=== PATIENT | female | born 1975 | race Caucasian/White ===

== ENCOUNTER 2017-12-15 14:57 | Observation (INO) ==
[2017-12-15] MEDS ORDERED: Naloxone 0.4 MG/ML INJ IVP PRN (17:18)
[2017-12-15] MEDS ORDERED: *HR* Heparin 5,000 UNIT/ML VIAL IVP PRN ×2 (17:22)
[2017-12-15] MEDS ORDERED: *HR* Heparin 5,000 UNIT/ML VIAL IVP ONE (17:22)
[2017-12-15] MEDS ORDERED: 0.9 % Sodium Chloride 1,000 ML IVC SCH ×2 (17:30→19:06)
[2017-12-15] MEDS: Heparin 25,000 UNIT/500 ML D5W 25,000 UNIT/500 ML BAG IVC SCH (17:54)
--- NOTE | 2017-12-15 18:01 | Internal Med History&Physical ---
Date of Encounter: 12/15/17 Time of Encounter: 17:50 Internal Medicine - H&P: HPI Chief complaint: chest pain Admitted From: Hospital to Hospital Transfer Plans for Post Hospital Care: Home History of present illness: Ms. Michelle is a 42 year old female with history of HTnadn ELADIA not compliant to her CPAP who was sent from [facility] to [facility] with cheif complaint of chest pain. as per patient her symptoms started about 3 days ago and are progressively worsening. she cannot recall what she was doing when her pain originally started. her pain is located in the left side of chest, radiating to her jaw and neck, feels like an elephant on her chest, 5/10 in severity although it has improved since arrival to [facility]. laying down does not aggravate her pain and sitting up does not alleviate her pain. her pain occurs both at rest and on ambulation. in addition to chest pain she also complains of Orthopnea, PND and bilateral leg swelling. her pain is not aggravated by palpation or deep breathing. she visited her PCP about 6 days ago and was started on diuretic ( cannot recall name or dosage). she has not been active for the past month. she has quit her job and is mostly at home. her activity has decreased but at baseline she reports that she can walk around the grocery store without having to stop for CP or SOB. she reports Dry cough and headache for the past 5 days. has not taken anything for the symptoms. she reports family history of heart disease in her father and grandmother was diagnosed with ELADIA but is non-compliant with her CPAP although she reports she hasbeen using it more often in the past 2 weeks. she denies fever, chills, chest trauma, palpitations, N/v/D, constipation, sputum production, Sick contacts, prolonged immobilization, clotting disorders Past Med Surg Social Fam HX - Past Medical History Medical history: arthritis, fibromyalgia, hypertension, SVT Psychiatric history: no psych history - Past Surgical History Additional surgical history: cardiac ablation - Social History Smoking Status: Current every day smoker Packs per day: 1/ Alcohol use: rarely Drug use: none - Family History Mother Living Status: Still Living Hx Family Genitourinary Disorders: Yes Father Living Status: Still Living Hx Family Cardiac Disorders: Yes Internal Medicine - H&P: Meds 3 Allergy/AdvReac Type Severity Reaction Status Date / Time No Known Allergies Allergy Unverified 10/26/16 23:54 All Systems PM: review of systems was performed and is negative for pertinent findings except as documented above in the HPI. - Constitutional Vitals: Temp Pulse Resp BP Pulse Ox 98.4 F 72 16 111/70 97 12/15/17 16:52 12/15/17 16:52 12/15/17 16:52 12/15/17 16:52 12/15/17 16:52 Exam: General: Patient is alert, oriented, no acute distress, morbidly obese Head: atraumatic, normocephalic, Eye: normal appearance, PERRL, no scleral icterus, no conjunctival injection ENT: mucous membranes moist, normal external ear exam Neck: normal inspection, trachea midline, full ROM, no carotid bruits Chest: normal inspection, symmetric chest rise Respiratory: distant breath sounds secondary to body habitus Good respiratory effort. Bilateral breath sounds are clear without wheezing, crackles, or rhonchi. Cardiovascular: distent heart sounds secondary to body habitus Regular rate and rhythm. s1 and s2 No clicks, rubs, gallops, or murmors. Abdomen: Bowel sounds present normoactive x-4 quadrants. Abdomen is soft, nondistended. no Epigastric tenderness. No guarding or rebound. No organomegaly noted, obese musculoskeletal: Spontaneously moving all extremities. +1 edema, no calf tenderness Skin: warm, dry, intact. Neuro: Alert and oriented x4. Sensation light touch intact. Cranial nerves 2- 12 is intact. Not aphasic, gait is steady, rapid hand movements intact, finger- to-nose intact, Psych: Patient's affect is normal Internal Med - H&P Results - EKG Data -: EKG Interpreted by Myself (ST elevations in the inferolateral leads, OR elevation in AVR ) - EKG Data Prior EKG available for review: no - Assessment and plan (1) Chest pain Current Visit: Yes Status: Acute Assessment and plan: Non-STEMI versus myopericarditis tele monitoring Was started on heparin drip at [facility] we will continue- pharmacy to dose Was loaded with aspirin 325 at [facility] will continue with 81 daily We will load with Plavix and continue with 75 daily Troponin every 6 hours- first one now EKG every 6 hours- first one now Cardiology was consulted, spoke to Dr. Marin who agrees with above Stat TTE Metoprolol 12.5 twice a day Chest x-ray ESR, CRP Lipitor 80 PT, PTT, INR stat Lipid panel in the morning Magnesium phosphorus BNP stat We will keep patient nothing by mouth Morphine for pain NTG sublingual for chest pain UA, utox Qualifiers: Chest pain type: chest pain due to myocardial ischemia Ischemic chest pain type: unspecified angina pectoris type Qualified Code(s): I25.9 - Chronic ischemic heart disease, unspecified (2) Morbidly obese Current Visit: Yes Status: Acute Assessment and plan: Was counseled on nutrition Nutrition consult (3) Current smoker Current Visit: Yes Status: Acute Assessment and plan: was counseled on tobacco cessation (4) ELADIA on CPAP Current Visit: Yes Status: Acute Assessment and plan: will continue CPAP at night (5) DVT prophylaxis Current Visit: Yes Status: Acute Assessment and plan: on heparin drip - Time Spent With Patient Total time spent is greater than 50% in coordination of care (as documented) at patient's floor/unit and/or counseling patient:
[2017-12-15] MEDS ORDERED: Nitroglycerin 0.4 MG TAB.SUBL SL PRN (18:10)
[2017-12-15 18:15] LABS: Basophils % 0.1 %; Eosinophils % 0.1 %; Hematocrit 35.9 % (35.3-44.9); Hemoglobin 12.5 g/dL (11.5-15.4); Immature Granulocytes % 0.4 % (0-4); Lymphocytes % 26.1 %; Mean Corpuscular HGB Conc 34.8 g/dL (31.6-35.5); Mean Corpuscular Hemoglobin 30.3 pg (28.0-33.3); Mean Corpuscular Volume 86.9 fL (83.0-100.0); Mean Platelet Volume 9.3 fL (9.4-12.4); Monocytes % 28.9 %; Platelet Count 179 K/mcL (140-400); Red Blood Count 4.13 M/mcL (3.82-4.97); Red Cell Distribution Width 13.3 % (11.5-14.5); Segmented Neutrophils % 44.4 %
[2017-12-15 18:17] LABS: Heparin anti-factor XA UFH 0.21 IU/mL (0.30-0.70)
[2017-12-15] MEDS ORDERED: Acetaminophen 325 MG TABLET PO PRN (18:17)
[2017-12-15 18:18] LABS: INR 1.1; Prothrombin Time 12.1 Seconds (9.4-12.1)
[2017-12-15 18:20] LABS: Activated Partial Thrombo Time 33.8 Seconds (26.0-36.0)
[2017-12-15 18:28] LABS: Lymphocytes # 1.9 K/mcL (0.6-4.6); Monocytes # 2.1 K/mcL (0.0-1.3); Neutrophils # 3.2 K/mcL (1.6-8.9)
[2017-12-15 18:37] LABS: Alanine Aminotransferase 18 Units/L (7-52); Albumin 4.2 g/dL (3.5-5.7); Albumin/Globulin Ratio 1.4 (1.1-2.2); Alkaline Phosphatase 43 Units/L (34-104); Aspartate Amino Transferase 16 Units/L (13-39); BUN/Creatinine Ratio 15 (6-26); Bilirubin,Total 0.6 mg/dL (0.3-1.0); Blood Urea Nitrogen 9 mg/dL (6-20); C-Reactive Protein 84 mg/L (Less than 10); Calcium 9.3 mg/dL (8.6-10.3); Carbon Dioxide 26 mEq/L (23-29); Chloride 103 mEq/L (98-107); Glucose 105 mg/dL (70-105); Magnesium 1.9 mg/dL (1.6-2.6); Osmolality,Calculated 281 (280-300); Phosphorous 3.6 mg/dL (2.7-4.5); Potassium 3.7 mEq/L (3.5-5.1); Sodium 136 mEq/L (136-145); Total Protein 7.2 g/dL (6.4-8.9); eGFR For Non-African Americans > 60 (> 60)
[2017-12-15 18:42] LABS: Troponin I 0.14 ng/mL (< 0.04)
[2017-12-15 19:15] LABS: Platelet Estimate Normal (Normal)
[2017-12-15] MEDS ORDERED: traMADol 50 MG TABLET PO PRN (21:20)
[2017-12-16] MEDS ORDERED: Chloraseptic Spray 177 ML BOTTLE MM PRN (01:48)
[2017-12-16 03:56] LABS: Hematocrit 33.3 % (35.3-44.9); Hemoglobin 11.4 g/dL (11.5-15.4); Mean Corpuscular HGB Conc 34.2 g/dL (31.6-35.5); Mean Corpuscular Hemoglobin 30.2 pg (28.0-33.3); Mean Corpuscular Volume 88.3 fL (83.0-100.0); Mean Platelet Volume 9.5 fL (9.4-12.4); Platelet Count 178 K/mcL (140-400); Red Blood Count 3.77 M/mcL (3.82-4.97); Red Cell Distribution Width 13.4 % (11.5-14.5)
[2017-12-16 05:25] LABS: Bilirubin,Urine Negative (Negative); Blood,Urine Negative (Negative); Clarity,Urine Clear (Clear); Color,Urine Yellow (Yellow); Glucose,Urine (UA) Normal (Normal); Ketones,Urine Negative (Negative); Leukocyte Esterase,Urine Negative (Negative); Nitrite,Urine Negative (Negative); Protein,Urine Trace mg/dL (Neg-Trace); Specific Gravity,Urine 1.022 (1.010-1.025); Urobilinogen,Urine Normal (Normal)
[2017-12-16 05:27] LABS: Bacteria,Urine None Seen per hpf (None-Few); Hyaline Casts,Urine None Seen per lpf (None-Few); Squamous Epithelial Cell,Urine Many per lpf (None-Few); WBC,Urine 0-3 per hpf (0-3)
[2017-12-16 05:52] LABS: Amphetamine Screen,Urine Negative ng/mL (Cutoff=1000); Barbiturate Screen,Urine Negative ng/mL (Cutoff=200); Benzodiazepines Screen,Urine Negative ng/mL (Cutoff=200); Cannabinoid Screen,Urine Negative ng/mL (Cutoff = 50); Cocaine Screen,Urine Negative ng/mL (Cutoff= 300); Opiate Screen,Urine Negative ng/mL (Cutoff=300); Phencyclidine Screen,Urine Negative ng/mL (Cutoff=25)
[2017-12-16] MEDS: Heparin 25,000 UNIT/500 ML D5W 25,000 UNIT/500 ML BAG IVC SCH (07:28)
[2017-12-16] MEDS: Aspirin 81 MG TAB.CHEW PO SCH (08:50)
--- NOTE | 2017-12-16 09:21 | Cardiology Consult Note ---
Date of Encounter: 12/16/17 Time of Encounter: 08:30 Assessment and Plan (1) NSTEMI (non-ST elevated myocardial infarction) Current Visit: Yes Status: Acute Troponin 0.32 ([facility]); 0.14 x2, 0.12. Atypical/typical CP symptoms. No acute ischemic ECG changes present. Chest pain free upon exam. On asa, plavix (load in ED), statin, and, BB. On IV heparin gtt per [facility] protocol. Check TTE to evaluate structure and function. Recommend LHC with possible PCI; alternatives, risks, and benefits discussed, she is agreeable to proceed. Cardiac rehab consult. Further recommendations to follow. (2) HTN (hypertension) Current Visit: Yes Status: Acute Controlled, continue antihypertensives. Qualifiers: Hypertension type: essential hypertension Qualified Code(s): I10 - Essential (primary) hypertension (3) Current smoker Current Visit: Yes Status: Acute Smoking cessation counseling provided. Discussion w patient/family: The assessment and plan as outlined above was discussed with the patient and/or family members who expressed understanding and agreement. All questions were answered. Thank you for involving us in the care of your patient. Please call with any questions. The patient will be discussed and reviewed with Dr. Bazan; changes to be made accordingly. History of Present Illness Consult date: 12/16/17 Requesting physician: Sangeeta Rincon Consult reason: NSTEMI Chief complaint: Chest pain, shortness of breath History of present illness: Ms. Michelle is a 42 year old female with PMHx significant of ELADIA (does not use CPAP ), SVT s/p remote ablation, HTN, and tobacco dependency who presented as a transfer from [facility] ED due to elevated troponin--0.32. Reports 3-4 day history of worsening shortness of breath associated with left-sided non-radiating chest discomfort. Associated symptoms include fatigue and diaphoresis. She is unsure if symptoms are related to exertion. Of note, reports~6 month history of jaw discomfort associated with left-sided chest pain. No prior CV testing reported aside from SVT ablation at [facility] ~21 years ago. Past Med Surg Social Fam HX - Past Medical History Attestation: Yes The following information was validated with the patient. Source: patient Medical history: arthritis, fibromyalgia, hypertension, SVT Psychiatric history: no psych history - Past Surgical History Additional surgical history: cardiac ablation - Social History Smoking Status: Current every day smoker Packs per day: 1 Alcohol use: rarely Drug use: none - Family History Mother Living Status: Still Living Hx Family Genitourinary Disorders: Yes Father Living Status: Still Living Hx Family Cardiac Disorders: Yes Medications and Allergies 3 Allergy/AdvReac Type Severity Reaction Status Date / Time No Known Allergies Allergy Unverified 10/26/16 23:54 All Systems Review: The remainder of the systems were reviewed and are negative - Cardiovascular Cardiovascular: as per HPI Physical Examination Vital Signs, Last 4 Hours Temp Pulse Resp BP Pulse Ox 12/16/17 06:42 98.4 F 72 88/48 12/16/17 05:40 98.8 F 75 16 100/47 99 General: Other (obese) HEENT: Atraumatic, Normocephaly, Mucus Membranes Moist Neck: No JVD, Normal carotid pulses Cardiac: Reg Rate and Rhythm, Normal S1 and S2, No Murmur Lungs: Normal Breath Sounds, No Wheeze, Rales, Rhonchi Neuro: Alert and responsive, No focal deficits noted Abdomen: Soft, Non-Tender Skin: No rashes noted on visualized skin Musculoskeletal: No Chest Wall Tenderness Extremities: No Clubbing, No Cyanosis, No Edema, Normal Pulses Results 12/16/17 03:42 12/15/17 17:59 Lab Results 12/15/17 12/15/17 12/15/17 17:59 17:59 17:59 WBC 7.1 Hgb 12.5 Hct 35.9 Plt Count 179 INR 1.1 APTT 33.8 Sodium 136 Potassium 3.7 Chloride 103 Carbon Dioxide 26 BUN 9 Creatinine 0.59 L Glucose 105 Calcium 9.3 Magnesium 1.9 Total Bilirubin 0.6 AST 16 ALT 18 Alkaline Phosphatase 43 Troponin I 0.14 H* B-Natriuretic Peptide 12/15/17 12/15/17 12/16/17 17:59 23:47 03:42 WBC 6.9 Hgb 11.4 L Hct 33.3 L Plt Count 178 INR APTT Sodium Potassium Chloride Carbon Dioxide BUN Creatinine Glucose Calcium Magnesium Total Bilirubin AST ALT Alkaline Phosphatase Troponin I 0.14 H* B-Natriuretic Peptide 202 H 12/16/17 05:32 WBC Hgb Hct Plt Count INR APTT Sodium Potassium Chloride Carbon Dioxide BUN Creatinine Glucose Calcium Magnesium Total Bilirubin AST ALT Alkaline Phosphatase Troponin I 0.12 H* B-Natriuretic Peptide Active Medications Acetaminophen (Tylenol) 325 mg PO Q6HR PRN PRN Reason: Fever Stop: 06/16/18 18:18 Last Admin: 12/16/17 07:31 Dose: 325 mg Aspirin (Aspirin) 81 mg PO DAILY [facility] Stop: 06/17/18 09:01 Last Admin: 12/16/17 08:50 Dose: 81 mg Atorvastatin Calcium (Lipitor) 80 mg PO HS [facility] Stop: 06/16/18 21:01 Last Admin: 12/15/17 21:09 Dose: 80 mg Clopidogrel Bisulfate (Plavix) 75 mg PO DAILY [facility] Stop: 06/17/18 09:01 Last Admin: 12/16/17 08:50 Dose: 75 mg Heparin Sodium (Porcine) (Heparin) 8,400 unit 70 unit/kg (8400 unit) IVP Q6HR PRN PRN Reason: SEE COMMENTS Stop: 06/16/18 17:23 Heparin Sodium (Porcine) (Heparin) 4,200 unit 35 unit/kg (4200 unit) IVP Q6H PRN PRN Reason: SEE COMMENTS Stop: 06/16/18 17:23 Last Admin: 12/15/17 21:11 Dose: 4,200 unit Heparin Sodium/Dextrose (Heparin 25,000 Unit/500 Ml D5w) 25,000 unit in 500 mls @ 33.432 mls/hr IVC .[id number] [facility]; 14 UNIT/KG/HR PRN Reason: Protocol Stop: 06/16/18 17:31 Last Admin: 12/16/17 07:28 Dose: 15.99 unit/kg/hr, 38.2 mls/hr Sodium Chloride (0.9 % Sodium Chloride) 1,000 mls @ 60 mls/hr IVC .[id number] [facility] Stop: 12/17/17 04:25 Last Admin: 12/15/17 19:54 Dose: 60 mls/hr Metoprolol Tartrate (Lopressor) 12.5 mg PO BID [facility] Stop: 06/16/18 21:01 Last Admin: 12/16/17 08:50 Dose: 12.5 mg Multi-Ingredient Mucositis [place] (Chloraseptic) 2 spray MM QID PRN PRN Reason: Sore Throat Stop: 06/17/18 01:49 Last Admin: 12/16/17 02:34 Dose: 2 spray Naloxone HCl (Narcan) 0.4 mg IVP Q2MIN PRN PRN Reason: SEE COMMENTS Stop: 06/16/18 17:19 Nitroglycerin (Nitroglycerin) 0.4 mg SL Q5MIN PRN PRN Reason: Chest Pain Stop: 06/16/18 18:11 Tramadol HCl (Ultram) 100 mg PO TID PRN PRN Reason: Moderate Pain Stop: 06/16/18 21:21 Last Admin: 12/15/17 21:34 Dose: 100 mg - Imaging and Cardiology Echo: pending Other Results: 12 hour tele: avg HR=79 SR. No events noted. - EKG Interpretation EKG results cardiology: personally reviewed Consult Discharge Plan - Plan Referrals: Narcisa Harrington MD [Primary Care Provider] -
[2017-12-16] MEDS ORDERED: Heparin 1,000 UNITS/500 mL 500 ML ONE (10:11)
[2017-12-16] MEDS ORDERED: ISOVUE-370 200 ML INFUS..BTL IV ONE (10:11)
[2017-12-16] MEDS ORDERED: *HR* Heparin 10,000 UNIT/10 ML VIAL ONE (10:11)
[2017-12-16] MEDS ORDERED: Nitroglycerin 1,000 MCG/10 ML VIAL IV ONE (10:12)
[2017-12-16] MEDS ORDERED: 0.9 % Sodium Chloride 1,000 ML ONE ×2 (10:12→11:33)
[2017-12-16 10:54] LABS: Estimated Average Glucose 123 mg/dl; Hemoglobin A1C 5.9 %
[2017-12-16] MEDS ORDERED: *HR* Midazolam HCl 2 MG/2 ML VIAL ONE ×2 (11:33→12:06)
--- NOTE | 2017-12-16 11:42 | Pre-Sedation Evaluation ---
Pre-sedation evaluation - Pre-sedation checklist Date of procedure: 12/16/17 Procedure: [facility] Recent Vitals: Last Vital Signs Temp 98.7 F 12/16/17 10:22 Pulse 62 12/16/17 10:22 Resp 16 12/16/17 05:40 BP 95/55 12/16/17 10:22 Pulse Ox 99 12/16/17 05:40 H&P (including ROS) documented in medical record: Yes Previous reaction to sedatives/anesthetics: No Dietary Status: NPO after Midnight Airway Assessment: Patient can open mouth completely, TMJ function normal Dentition: No loose teeth or bridges Possible difficult airway: No ASA Classification *see protocol: CLASS III-Severe systemic disease Cardiac Registry (Cardio Only) - Functional Capacity Functional Capacity: >=4 METS without symptoms - Clincal Frailty Scale Clinical Frailty Scale: Well
[2017-12-16] MEDS ORDERED: 0.9 % Sodium Chloride 1,000 ML IVC SCH (12:30)
--- NOTE | 2017-12-16 13:24 | Invasive Diagnostic Lab Proc ---
Name: Jonel Michelle Date of Study: 12/16/2017 Date: 1975 Ht: 65.0in Medical Record#: [id number] Age: 42 Wt: 264.55lb Gender: Female BSA: 2.23 Order #: [id number] BMI: 44.08 Physicians Procedure Physician: Blane Catherine DO Referring MD: Referring MD: Staff Name Position Time In Daniel Lester RN Affiliate Marketing Manager 11:40 AM Lisa Cooper RT (R) Monitor 11:40 AM Alicia Cabrales RT Scrub 11:40 AM Nelson Gentile RN Nurse 11:46 AM Indications Indication Non-Stemi Procedures Performed Procedure L HRT ARTERY/VENTRICLE ANGIO Pre-Procedure Checklist Informed consent is complete signed and on chart. H&P is on chart. ID band is on and ID verified with patient. Patient NPO for procedure The procedure was described for the patient and questions were answered. ECG is on chart. Plan of Care Patient will tolerate the procedure without complications. Adequate level of comfort will be maintained. Hemodynamics will remain stable Patient will recover from procedure without complications. Respiratory function will be maintained. Cardiac rhythm will remain stable. Patient temperature will be maintained. Patient and/or family have verbalized understanding of the procedure. Patient Education Chief Complaint/Reason for Test: Cardiac Cath Developmental Category: Adult (18-64 years) Developmentally Appropriate for Age: Yes Learning Barriers: None Education Needs: Procedure Education Method: Verbal Information Taught: Cardiac Cath Educational Evaluation: Able to repeat information Intravenous Access Time IV Size Location DC'd Fluid/Drip Rate Units RN 11:41 AM Started with 22g 1 " Rt Antecubital 0.9NaCl 25 ml/hr Nelson Gentile RN Allergies NKA LMP-01/18 No Known Allergies Vital Signs Time BP (mmHg) HR (bpm) O2 Sat. RR (bpm) LOC 11:40 AM / % 5 = Fully awake and oriented or at pre-proc level 11:41 AM / % 4 = Oriented but drowsy 12:00 PM / % 4 = Oriented but drowsy 12:15 PM / % 5 = Fully awake and oriented or at pre-proc level 11:46 AM 113 / 85 67 100 % 21 11:51 AM 124 / 55 69 99 % 18 11:56 AM 119 / 57 67 100 % 16 12:01 PM 110 / 54 65 100 % 15 12:06 PM 112 / 63 66 100 % 17 12:11 PM 118 / 53 65 100 % 18 12:16 PM 131 / 79 68 100 % 17 12:21 PM 135 / 71 69 98 % 18 12:26 PM 130 / 64 73 100 % 12 12:45 PM 122 / 67 68 98 % 18 4 = Oriented but drowsy 01:00 PM 114 / 74 67 98 % 16 4 = Oriented but drowsy 01:13 PM 115 / 71 61 98 % 18 5 = Fully awake and oriented or at pre-proc level Procedural Medications Time Medication Dose Units Method Given By 11:54 AM Versed 2 mg Intravenous Daniel Lester RN 12:02 PM Lidocaine 2% 10 ml Subcutaneous Blane Catherine, 12:03 PM Lidocaine 2% 10 ml Subcutaneous Blane Catherine DO 12:16 PM Heparin 2000 units Intravenous Daniel Lester RN 12:19 PM 90mg Adenosine in 90 ml 0.9 NS 999 ml/hr Intravenous Daniel Lester RN 12:22 PM 90mg Adenosine in 90 ml 0.9 NS 12:05 PM Versed 1 mg Intravenous Daniel Lester RN ASA Classification: CLASS III- Severe systemic disease (i.e. prior AMI, diabetes with vascular complications, morbid obesity) Charity Score Preprocedure Postprocedure Activity 2- Moves 4 extremities sustained head lift Activity Circulation 2- SBP +/= 20 points of pre-anesthetic level Circulation Consciousness 2- Awake and alert oriented x 3 Consciousness O2 Saturation 2- Able to maintain O2 satruation of 92% on room air O2 Saturation Respiratory 2- Able to deep breathe and cough well Respiratory Total Score 10 Total Score Contrast Agent: Isovue Diagnostic Contrast: 75 ml Total Contrast: 75 ml Fluoro Dose: 8117 mGy Activated Clotting Time Time Seconds to Clot 12:25 PM 169 12:28 PM 180 Procedure Log Time Note Enter By 11:33 AM CathStat 11:40 AM Pt arrived to wheelabrator operator 2 at 11:40 [facility] 11:40 AM Daniel Lester RN Position: Affiliate Marketing Manager Time in: 11:40 [facility] 11:40 AM Lisa Cooper RT (R) Position: Monitor Time in: 11:40 [facility] 11:40 AM Alicia Cabrales RT Position: Scrub Time in: 11:40 [facility] 11:40 AM Patient charges- Angio tray pack, Navilyst 3mm J, Pulse Oximetry and ACIST tubing and transducer dspell:40 AM IV Supplies used: J loop Angio Cath. 11:40 AM Physician arrived :ell:40 AM Meet and greet completed :40 AM Sign in performed according to hospital policy. :40 AM Procedure start :40 dspell 11:40 AM Time: :40 Patient comfortable and pain free: Yes AM Time: :40LOC: 5 = Fully awake and oriented or at pre-proc level dspell:41 AM Clinical Presentation: Non-STEMI dspell 11:45 AM Vitals capture started with the following parameters, Patient=Adult, Interval=5 min, Initial Fzvtfwyd=103 mmHg, Deflation Rate=5 mmHg, Cuff placed on Right Arm 11:46 AM HR=67 bpm, GQDS=203/85 mmhg, FmR4=739.0 %, Resp=21 B/min, Comment=NSR 11:46 AM Nelson Gentile RN Position: Nurse Time in: :46 11:50 AM Pressure channel 2 zeroed. 11:51 AM HR=69 bpm, FESR=645/55 mmhg, SpO2=99.0 %, Resp=18 B/min, Comment=NSR 11:52 AM ASA Class CLASS III- Severe systemic disease (i.e. prior AMI, diabetes with vascular complications, morbid obesity) 11:54 AM Time: :54 Versed 2 mg Intravenous Given by Daniel Lester RN 11:56 AM HR=67 bpm, CGVD=731/57 mmhg, LyJ7=042.0 %, Resp=16 B/min, Comment=NSR 12:00 PM Time: :LOC: 4 = Oriented but drowsy dspell 12:00 PM Time: 11:40 Patient comfortable and pain free: Yes ell 12:01 PM HR=65 bpm, GJZD=368/54 mmhg, KeD4=007.0 %, Resp=15 B/min, Comment=NSR 12:01 PM Hair removed from procedure site in holding area using clippers. Bilateral groin prepped with Chloraprep by Alicia Cabrales RT, then patient was draped. Skin intact. dspell 12:02 PM Time out performed according to hospital policy [facility] PM Time: 12:02 10 ml Lidocaine 2% to right groin Subcutaneous [facility] by Blane [facility] 12:04 PM Time: 12:03 10 ml Lidocaine 2% to right groin Subcutaneous Given by Blane Catherine DO [facility] 12:05 PM Access obtained by percutaneous puncture. 6Fr 10cm Terumo Lisle sheath placed in right Femoral artery. [id number] [facility] 12:05 PM Time: 12:05 Versed 1 mg Intravenous Given by Daniel Lester RN [facility] 12:06 PM HR=66 bpm, SRIV=688/63 mmhg, LyI5=540.0 %, Resp=17 B/min, Comment=NSR 12:07 PM Micro-Introducer Kit utilized for sheath placement [facility]: PM 6Fr FR 4 catheter inserted over the wire [facility]:07 PM Recorded Pressure: LV, LV, HR=70, Condition=Condition 1 (Left Ventricle) LV -28/-28/-28, (Left Ventricle) LV 94/3/17 12:07 PM Recorded Pressure: LV, LV, Ao, HR=69, Condition=Condition 1 (Left Ventricle) LV -28/-28/-28, (Left Ventricle) LV 90/0/9, (Aorta) Ao 79/42/60 12:07 PM 0.035 145cm Navilyst 3mmJ wire [id number] [facility] 12:07 PM Catheter selectively placed in left ventricle [facility] 12:08 PM Bolus angiogram of left Ventricle complete: 10 ml/sec for a total of 10 mls [facility]:08 PM RCA angiography performed in multiple views. :08 PM Catheter removed dsp:08 PM 6Fr FL 4 catheter inserted over the wire [facility]:08 PM LCA angiography performed in multiple views. [facility] 12:09 PM Recorded Pressure: Ao, HR=67, Condition=Condition 1 (Aorta) Ao 86/48/67 12:10 PM Recorded Pressure: Ao, HR=66, Condition=Condition 1 (Aorta) Ao 92/54/72 12:11 PM HR=65 bpm, ASDL=911/53 mmhg, XeT9=201.0 %, Resp=18 B/min, Comment=NSR 12:11 PM Recorded Pressure: Ao, HR=66, Condition=Condition 1 (Aorta) Ao 95/57/74 12:12 PM Catheter removed [facility] 12:13 PM [ Select Channel To Zero ] 12:13 PM Pressure channel 2 zero failed. 12:14 PM Pressure channel 2 zero failed. 12:14 PM Pressure channel 4 zeroed. 12:14 PM Pressure channel 2 zeroed. 12:14 PM 6Fr XB LAD 3.5 Cordis guide catheter was used to cannulate the PCI vessel successfully. reused? No dspellman 12:15 PM Time: 12:00 Patient comfortable and pain free: Yes dspellslayden 12:15 PM Time: 12:00LOC: 4 = Oriented but drowsy dspellman 12:15 PM .014 ChoICE PT Extra Support 300cm guide wire across target lesion- successful. reused? No [facility] 12:15 PM Inflation device [facility] opened. [facility] PM PCI lesion in Mid LAD. [facility] 12:16 PM HR=68 bpm, RWVF=795/79 mmhg, RmB9=766.0 %, Resp=17 B/min, Comment=NSR 12:16 PM Time: 12:16 Heparin 2000 units Intravenous Given by Daniel Lester RN [facility] 12:17 PM ACT drawn [facility] 12:18 PM At 12:18 the ACT was 169 seconds. [facility] 12[facility]18 PM Asist FFR Catheter advanced to target lesion. [facility] 12:19 PM Time: 12:19 90mg Adenosine in 90 ml 0.9 NS 999 ml/hr Intravenous Given by Daniel Lester RN Cevallos pump [facility] 12:21 PM Recorded Pressure: Ao, Ao, HR=74, Condition=Condition 1 (Aorta) Ao 121/78/98, (Aorta) Ao 111/73/89 12:21 PM HR=69 bpm, KONP=470/71 mmhg, SpO2=98.0 %, Resp=18 B/min, Comment=NSR 12:21 PM Recorded Pressure: Ao, Ao, HR=71, Condition=Condition 1 (Aorta) Ao 110/68/88, (Aorta) Ao 106/64/80 12:21 PM Recorded Pressure: Ao, Ao, HR=73, Condition=Condition 1 (Aorta) Ao 118/71/92, (Aorta) Ao 100/62/77 12:22 PM Recorded Pressure: Ao, Ao, HR=87, Condition=Condition 1 (Aorta) Ao 94/60/78, (Aorta) Ao 82/53/66 12:22 PM FFR Measurement: 0.83 dspellman 12:22 PM Time: 12:22 90mg Adenosine in 90 ml 0.9 NS d'cd mcg Intravenous Given by Daniel Lester RN Cevallos pump dspell 12:23 PM Flow Wire/Catheter removed intact dspellman 12:23 PM Guide wire removed intact. dspellman 12:24 PM Guide catheter removed intact. dspellman 12: PM HR=73 bpm, GQVO=716/64 mmhg, YbN2=859.0 %, Resp=12 B/min, Comment=NSR 12:26 PM ACT drawn dspellman 12:26 PM Procedure completed at 12:26 12/16/2017 dspellman 12:27 PM Did you address BREEZY flow and Dominance? Yes dspellslayden 12:28 PM Sign out completed: Radiation Dose 751.21 mGy, 8117.17 cGy/cm2 Fluoro Time: 3.5 Isovue 370 - 200ml contrast 75 ml given by Blane Catherine DO. Complications: NoneCardiac Rehab Consult needed: NoConfirmed administered medications: Yes dspellman 12:28 PM Isovue 370 - 200ml,1 Bottle(s) used. dspellman 12:28 PM Sheath left in place to be pulled on floor/holding areaV+Pad dspellman 12:28 PM Estimated Blood Loss: minimal dspellman 12:28 PM At 12:28 the ACT was 180 seconds. dspellman 12:28 PM Post ECG NSR dspellman 12:28 PM Post Blood Pressure 130/64 dspellman 12:29 PM 12:28 Post Pulses Bilateral DP 2+ dspellman 12:29 PM 12:29 Post Pulses Bilateral PT 1+ dspellman 12:29 PM Information taught Cardiac Cath dspellman 12:29 PM Education needs Procedure, Plan of Care, and Responsibilities of Patient in Care dspellman 12:30 PM Learning barriers :None dspell 12:30 PM Education Methods Verbal dspell 12:30 PM Education evaluation Able to repeat information dspellslayden 12:30 PM Time: 12:15LOC: 5 = Fully awake and oriented or at pre-proc level dspellman 12:30 PM Time: 12:15 Patient comfortable and pain free: Yes dspellman 12:30 PM Site status No bleeding/hematoma - Rt Groin as reported by Alicia Cabrales RT at 12:30 dspellman 12:30 PM Opsite applied dspellman 12:31 PM Vitals capture stopped. 12:31 PM Family placed in No family available. dspellman 12:31 PM Complications: None dspell 12:34 PM Report given to Theresa MCKAY Pt taken to Holding room Room #23. 12:33 dspellman 12:34 PM Patient out of room: 12:34 dspellman 12:40 PM Lesion found in Mid LAD. Pre Stenosis: 50 Pre BREEZY Flow: 3: Complete and Brisk Flow/Perfusion dspellman 12:40 PM Proximal Left Anterior Descending Coronary Artery with 50% stenosis. If graft is supplying this territory, 0 % stenosis. dspellman 12:55 PM Right femoral sheath pulled per Alex Davalos RN. Manual pressure being held with Vpad at present. kwitte 01:12 PM Hemostasis obtained to right femoral artery per Alex Davalos RN. Dressing applied with opsite. Patient educated on post sheath pull. Patient verbalized understanding. kwitte 01:13 PM Delay to floor No kwitte 01:13 PM Complications: None kwitte 01:13 PM Site status No bleeding/hematoma - Rt Groin as reported by Alex Davalos RN at 13:13 kwitte 01:14 PM Patient out of room: 13:14 to 2ne 23 kwitte Complications Complication None None None Hemodynamics Pressures Site Systolic/A Wave Diastolic/V Wave Mean LV -28 -28 -28 LV 94 3 17 LV -28 -28 -28 LV 90 0 9 AO 86 48 67 AO 92 54 72 AO 79 42 60 AO 95 57 74 AO 121 78 98 AO 111 73 89 AO 110 68 88 AO 106 64 80 AO 118 71 92 AO 100 62 77 AO 94 60 78 AO 82 53 66 Post Procedure Information Blood Pressure: 130/64 mmHg Rhythm: NSR Post procedural instructions were given Closure Device Time Device Success/Fail 12/16/2017 12:34:00 PM Manual Compression Site Checks Time Location Status Staff Sheath In? Note 12:30 PM Rt Groin No bleeding/hematoma Alicia Cabrales RT Yes 01:13 PM Rt Groin No bleeding/hematoma [place], Alex RN 12:45 PM Rt Groin No bleeding/ No Hematoma Omar Moore RN Pulses Time Site Pre-Procedure Post-Procedure Note 12/16/2017 11:42:00 AM Bilateral DP 2+ 12/16/2017 11:43:00 AM Bilateral PT 1+ 12:28:00 PM Bilateral DP 2+ 12:29:00 PM Bilateral PT 1+ 12/16/2017 1:00:00 PM Bilateral DP 2+ Updated by Omar Moore RN on 12/16/2017 1:15:45 PM Omar Moore RN electronically signed on 12/16/2017 1:16:15 PM with status of Final
--- NOTE | 2017-12-16 13:39 | Internal Med Progress Note ---
Hospitalist Progress Note - Encounter Date of Encounter: 12/16/17 Time of Encounter: 07:30 - Subjective Interval History: she is doing well, denies any chest pain, she is able to lay flat on the bed without difficulty. has remained NPO for possible procedure this AM. denies SOB, N/v/D, diaphoresis, cough, sore throat has had no over night events. denies orthopnea or PND at the moment - Exam Vitals: Temp Pulse Resp BP Pulse Ox 98.7 F 62 16 95/55 99 12/16/17 10:22 12/16/17 10:22 12/16/17 05:40 12/16/17 10:22 12/16/17 05:40 Exam: General: Patient is alert, oriented, no acute distress, morbidly obese Head: atraumatic, normocephalic, Eye: normal appearance, PERRL, no scleral icterus, no conjunctival injection ENT: mucous membranes moist, normal external ear exam Neck: normal inspection, trachea midline, full ROM, no carotid bruits Chest: normal inspection, symmetric chest rise Respiratory: distant breath sounds secondary to body habitus Good respiratory effort. Bilateral breath sounds are clear without wheezing, crackles, or rhonchi. Cardiovascular: distent heart sounds secondary to body habitus Regular rate and rhythm. s1 and s2 No clicks, rubs, gallops, or murmors., no rubs Abdomen: Bowel sounds present normoactive x-4 quadrants. Abdomen is soft, nondistended. no Epigastric tenderness. No guarding or rebound. No organomegaly noted, obese musculoskeletal: Spontaneously moving all extremities. +1 edema, no calf tenderness Skin: warm, dry, intact. Neuro: Alert and oriented x4. Sensation light touch intact. Cranial nerves 2- 12 is intact. Not aphasic, gait is steady, rapid hand movements intact, finger- to-nose intact, Psych: Patient's affect is normal - Assessment and Plan (1) NSTEMI (non-ST elevated myocardial infarction) Current Visit: Yes Status: Acute Assessment and Plan: Non-STEMI versus myopericarditis ( ESR and CRP elevated) tele monitoring Was started on heparin drip at [facility] we will continue- pharmacy to dose Was loaded with aspirin 325 at [facility] will continue with 81 daily We will load with Plavix and continue with 75 daily Troponin every 6 hours- first one now EKG every 6 hours- first one now Cardiology was consulted, spoke to Dr. Marin who agrees with above- for cardiac cath this AM - will follow recommendations post cath Metoprolol 12.5 twice a day Lipitor 80 NTG sublingual for chest pain TTE: 12/15/17 LVEF 60-65%. Normal LV chamber size, wall thickness and function. Normal left ventricular diastolic function. Normal right ventricular structure and function. No evidence of pulmonary hypertension. No significant valvular dysfunction. Normal appearing pericardium. No effusion. (2) Morbidly obese Current Visit: Yes Status: Acute Assessment and Plan: Was counseled on nutrition Nutrition consult (3) Current smoker Current Visit: Yes Status: Acute Assessment and Plan: was counseled on tobacco cessation (4) ELADIA on CPAP Current Visit: Yes Status: Acute Assessment and Plan: will continue CPAP at night (5) Prediabetes Current Visit: Yes Status: Acute Assessment and Plan: was counseled on nutrition / weight loss to follow up with PCP for further management of her pre diabetes (6) DVT prophylaxis Current Visit: Yes Status: Acute Assessment and Plan: on heparin drip - Time Spent with Patient Total time spent is greater than 50% in coordination of care (as documented) at patient's floor/unit and/or counseling patient: Internal Medicine: Result - Labs CBC & Chem 7: 12/16/17 03:42 12/15/17 17:59 Labs: Short CBC 12/15/17 12/16/17 Range/Units 17:59 03:42 WBC 7.1 6.9 (4.3-11.1) K/mcL Hgb 12.5 11.4 L (11.5-15.4) g/dL Hct 35.9 33.3 L (35.3-44.9) % Plt Count 179 178 (140-400) K/mcL Neutrophils # 3.2 (1.6-8.9) K/mcL BMP 12/15/17 17:59 Sodium 136 Potassium 3.7 Chloride 103 Carbon Dioxide 26 BUN 9 Creatinine 0.59 L Glucose 105 Calcium 9.3 Cardiac Enzymes 12/15/17 12/15/17 12/16/17 Range/Units 17:59 23:47 05:32 Troponin I 0.14 H* 0.14 H* 0.12 H* (< 0.04) ng/mL Liver Function 12/15/17 Range/Units 17:59 Total Bilirubin 0.6 (0.3-1.0) mg/dL AST 16 (13-39) Units/L ALT 18 (7-52) Units/L Alkaline Phosphatase 43 (34-104) Units/L Albumin 4.2 (3.5-5.7) g/dL Urine 12/16/17 Range/Units 04:50 Urine Color Yellow (Yellow) Urine Clarity Clear (Clear) Urine pH 6.0 (5.0-8.0) pH Units Ur Specific [place] 1.022 (1.010-1.025) Urine Protein Trace (Neg-Trace) mg/dL Urine Glucose (UA) Normal (Normal) mg/dL - ABG Interpretation ABG results: PT/INR, D-dimer PT 12.1 Seconds (9.4-12.1) 12/15/17 17:59 - Impressions Impressions Chest X-Ray 12/15/17 17:21 IMPRESSION: No acute cardiopulmonary disease. D/ / Sonido Lugo MD / Sonido Lugo MD Interpreting Provider: Sonido Lugo MD Echocardiogram 12/15/17 17:34 Impressions: LVEF 60-65%. Normal LV chamber size, wall thickness and function. Normal left ventricular diastolic function. Normal right ventricular structure and function. No evidence of pulmonary hypertension. No significant valvular dysfunction. Normal appearing pericardium. No effusion. Left Ventricular Wall Motion: Rest Echo Findings All wall segments showed normal motion. Findings: Study Quality * Technically adequate exam. ECG Findings * Normal sinus rhythm. Left Ventricle * LVEF 60-65%. * Normal LV chamber size, wall thickness and function. * Normal left ventricular diastolic function. Right Ventricle * Normal right ventricular structure and function. Left Atrium * Normal left atrial size. Right Atrium * Normal right atrial size. Aortic Valve * Aortic valve not well visualized. * No aortic regurgitation. * No aortic stenosis. Mitral Valve * Normal mitral valve structure and function. * No mitral regurgitation. * No mitral stenosis. Tricuspid Valve * Normal tricuspid valve structure and function. * Trace tricuspid regurgitation. * No evidence of pulmonary hypertension. Pulmonic Valve * Pulmonic valve is not well visualized. * No pulmonic regurgitation. Aorta * Normally sized aortic root. Pericardium * The pericardium appears normal. IVC * Normal IVC dimensions and inspiratory collapse. Pulmonary Artery * Normal visualized portions of the main pulmonary artery. Consult Discharge Plan - Plan Referrals: Narcisa Harrington MD [Primary Care Provider] -
--- NOTE | 2017-12-16 14:13 | Event Note ---
Date of Encounter: 12/16/17 Time of Encounter: 14:00 - Cardiology Event Note Preliminary [facility] results reviewed with Dr. Catherine--mild, non-obstructive CAD. EF normal. No further inpatient recommendations from Cardiology, will coordinate outpatient follow-up. Risk factor modification emphasized. Continue asa, statin. Discussed and reviewed with Dr. Bazan who agrees with plan as stated above.
[2017-12-16] MEDS: *HR* Heparin 5,000 UNIT/ML VIAL SQ SCH (20:19)
[2017-12-17] MEDS: *HR* Heparin 5,000 UNIT/ML VIAL SQ SCH (05:53)
[2017-12-17 06:41] VITALS: BP 115/66
--- NOTE | 2017-12-17 08:45 | Discharge Summary ---
- NOTES TO OUTPATIENT PROVIDER Notes to Outpatient Provider: follow up with REFUGIO, DsDNA, c3, c4. A1c is 5.9- needs follow up for prediabetes Orders not resulted at time of discharge: Pending orders 12/15/17 17:34 EKG [ECG 12 lead ECG] [ECG] Stat 12/15/17 23:18 ECG 12 lead ECG [ECG] Q6H 12/16/17 17:05 REFUGIO IgG RAAD rflx IFA Routine Anti-DNA DS, IgG with reflex Routine Complement Component 3 Routine Complement Component 4 Routine Date of Encounter: 12/17/17 Time of Encounter: 08:43 - Discharge Diagnosis (1) NSTEMI (non-ST elevated myocardial infarction) Priority: Primary Status: Acute (2) Morbidly obese Priority: Secondary Status: Acute (3) Current smoker Priority: Secondary Status: Acute (4) ELADIA on CPAP Priority: Secondary Status: Acute (5) Prediabetes Priority: Secondary Status: Acute (6) DVT prophylaxis Priority: Secondary Status: Acute Hospital course: Ms. Michelle is a 42 year old female with history of ELADIA not compliant to her CPAP, hypertension and current every day smoker presented from [facility] with chief complaint of chest pain.as per patient her symptoms started about 3 days before and are progressively worsening. she cannot recall what she was doing when her pain originally started. her pain is located in the left side of chest , radiating to her jaw and neck, feels like an elephant on her chest, 5/10 in severity although it has improved since arrival to [facility]. She also complained of on and off fevers and dry cough for the past 2 weeks which had exacerbated 5 days before admission and have improved since presentation to [facility]. While at [facility] troponins were elevated 0.32, she was loaded with aspirin and was started on heparin drip and was transported to [facility] for further evaluation. Cardiology was consulted and recommended to continue with heparin drip, and loaded with Plavix and obtain an echocardiogram. Troponins were followed and they trended down to 0.14 and 0.12. On 12/16 [facility] with possible PCI was performed, results below. Heparin drip was stopped, and cardiology recommended to continue with aspirin, Lipitor. EKG from [facility] had shown diffuse ST elevations in the inferolateral leads which was due to repolarization as per cardiology. Chest x-ray did not show any acute disease. Echocardiogram performed ( no pericardial effusion) , results below. She remained chest pain free throughout her hospitalization. ESR and CRP levels were sent on presentations which were elevated. Most likely secondary to her recent upper respiratory tract infection. She did report that she was seen by rheumatology about 1 year ago and was worked up for lupus. She was never started on any medications because she was told that "my levels were low." REFUGIO, dsDNA, C3 and C4 were ordered results are pending. She was told to follow-up with her primary care and have primary care follow-up with the results. Hemoglobin A1c was 5.9. She was counseled extensively on weight loss, nutrition, and smoking cessation. CXR: FINDINGS: The cardiomediastinal silhouette is unremarkable. The lungs are clear. No infiltrate, pleural fluid or focal process is seen. No acute osseous findings. TTE: Impressions: LVEF 60-65%. Normal LV chamber size, wall thickness and function. Normal left ventricular diastolic function. Normal right ventricular structure and function. No evidence of pulmonary hypertension. No significant valvular dysfunction. Normal appearing pericardium. No effusion. cardiac cath Coronary Dominance: Right Lesion Findings/Interventions * Left Main Coronary Artery The LMCA is angiographically free of disease. * Left Anterior Descending There is a 50% stenosis in the Mid LAD. The lesion has a BREEZY flow of 3. * Circumflex The Circumflex is angiographically free of disease. The 1st Marginal is angiographically free of disease. * Right Coronary Artery The RCA is angiographically free of disease. The Right PDA is angiographically free of disease. Discharge discussed with: patient, family Time spent discussing smoking cessation with patient: 3 to 10 minutes - Time Spent with Patient Total time spent providing and/or coordinating discharge services: Less than 30 minutes - Discharge Medications Prescriptions: Atorvastatin [Lipitor] 80 mg PO HS #30 tablet Blood Pressure Test Kit [Blood Pressure Kit] 1 each MC DAILY #1 kit Metoprolol [Lopressor] 12.5 mg PO BID #60 tablet Home Medications: Aspirin [Lo-Dose Aspirin EC] 81 mg PO DAILY 12/16/17 [History] BuPROPion SR (12 HR) [Wellbutrin SR] 300 mg PO DAILY 12/16/17 [History] Losartan Potassium [Cozaar] 100 mg PO DAILY 12/16/17 [History] Meloxicam 15 mg PO PRN PRN 12/16/17 [History] Omeprazole [PriLOSEC] 40 mg PO DAILY 12/16/17 [History] Atorvastatin [Lipitor] 80 mg PO HS #30 tablet 12/17/17 [Rx] Blood Pressure Test Kit [Blood Pressure Kit] 1 each MC DAILY #1 kit 12/17/17 [Rx ] Metoprolol [Lopressor] 12.5 mg PO BID #60 tablet 12/17/17 [Rx] Allergies/Adverse Reactions: 3 Allergy/AdvReac Type Severity Reaction Status Date / Time No Known Allergies Allergy Verified 12/16/17 14:02 Date of admission: 12/15/17 16:37 Primary care physician: Narcisa Harrington MD Consults: 12/15/17 17:25 Consult to Cardiology [CONS] Stat Comment: Consulting Provider: Cardiology Tahmina Reason for Consult: NSTEMI Call Completed: Yes 12/16/17 09:26 Consult to Cardiac Rehabilitation-Phase1 [CONS] Routine Comment: Reason for Consult: NSTEMI, possible LHC today. Call Completed: No - Constitutional Vitals: Temp Pulse Resp BP Pulse Ox 98.5 F 65 15 115/66 96 12/17/17 06:40 12/17/17 06:40 12/17/17 06:40 12/17/17 06:40 12/17/17 06:40 Exam: General: Patient is alert, oriented, no acute distress, morbidly obese Head: atraumatic, normocephalic, Eye: normal appearance, PERRL, no scleral icterus, no conjunctival injection ENT: mucous membranes moist, normal external ear exam Neck: normal inspection, trachea midline, full ROM, no carotid bruits Chest: normal inspection, symmetric chest rise Respiratory: distant breath sounds secondary to body habitus Good respiratory effort. Bilateral breath sounds are clear without wheezing, crackles, or rhonchi. Cardiovascular: distent heart sounds secondary to body habitus Regular rate and rhythm. s1 and s2 No clicks, rubs, gallops, or murmors., no rubs Abdomen: Bowel sounds present normoactive x-4 quadrants. Abdomen is soft, nondistended. no Epigastric tenderness. No guarding or rebound. No organomegaly noted, obese musculoskeletal: Spontaneously moving all extremities. no edema, no calf tenderness Skin: warm, dry, intact. Neuro: Alert and oriented x4. Sensation light touch intact. Cranial nerves 2- 12 is intact. Not aphasic, gait is steady, rapid hand movements intact, finger- to-nose intact, Psych: Patient's affect is normal - Patient Status Disposition: Home, Self-Care Condition: Good Overall status at discharge: patient is progressing back to baseline - Discharge Instructions Follow Up With: Narcisa Harrington MD [Primary Care Provider] - 12/30/17 1:00 pm Sebastien Bazan MD [Partnered Physician] - - Diet and Activity Activity: increase activity as tolerated Diet: diabetic diet, low salt diet
[2017-12-17] MEDS ORDERED: BuPROPion SR (12 HR) 150 MG TABLET PO SCH (09:00)
[2017-12-17] MEDS: Aspirin 81 MG TAB.CHEW PO SCH (09:58)
[2017-12-17] MEDS ORDERED: Adenosine 90 MG/30 ML MLS IV ONE (10:28)
--- NOTE | 2017-12-18 16:10 | Electrocardiograph Report ---
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
--- NOTE | 2017-12-19 11:50 | Electrocardiograph Report ---
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
[2017-12-20 15:51] LABS: ANA IgG by ELISA NONE DETECTED (None Detected); Complement Component 3 126 mg/dL (88-201)
[2017-12-20 15:52] LABS: Complement Component 4 27 mg/dL (10-40)
== END 2017-12-17 10:29 | disposition home or self-care (01) ==
LOC: 2NENU → SUATTDRO 16:37
PROVIDERS: ADMIT Student in an Organized Health Care Education/Training Program; ATTEND Internal Medicine